=== PATIENT | female | born 1965 | race American Indian/Alaskan Native ===

== ENCOUNTER 2017-01-05 00:03 | Emergency (ER) | payer MEDICAID ==
[2017-01-05 00:09] VITALS: BP 154/84
[2017-01-05] MEDS ORDERED: Acetaminophen/HYDROcodone 325-10 MG Tab PO ONE (00:19)
--- NOTE | 2017-01-05 00:23 | EDM.PDOC ---
{null, ED HPI GENERAL MEDICAL PROBLEM - General Chief Complaint: Lower Extremity Injury/Pain Stated Complaint: FOOT INJURY, [id number] Time Seen by Provider: 01/05/17 00:20 Source of Information: Reports: Patient History Limitations: Reports: No Limitations - History of Present Illness INITIAL COMMENTS - FREE TEXT/NARRATIVE: injured Thursday. still hurts. Left Feet Pain Score (Numeric/FACES): 8 - Related Data Allergies Allergy/AdvReac Type Severity Reaction Status Date / Time Penicillins Allergy Hives Verified 01/05/17 00:09 Home Meds: Home Meds Gabapentin [Neurontin] 300 mg PO QID 01/05/17 [History] Past Medical History - Past Health History Medical/Surgical History: Denies Medical/Surgical History HEENT History: Reports: Impaired Vision Other HEENT History: wears glasses Cardiovascular History: Reports: None Respiratory History: Reports: Asthma Gastrointestinal History: Reports: None Genitourinary History: Reports: Other (See Below) Other Genitourinary History: 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 infections 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: Musculoskeletal History: Reports: Arthritis, Back Pain, Chronic Neurological History: Reports: None Psychiatric History: Reports: Anxiety, Depression Endocrine/Metabolic History: Reports: None Hematologic History: Reports: Anemia Immunologic History: Reports: None Oncologic (Cancer) History: Reports: None Dermatologic History: Reports: None - Infectious Disease History Infectious Disease History: Reports: None - Past Surgical History Head Surgeries/Procedures: Reports: None Cardiovascular Surgical History: Reports: None GI Surgical History: Reports: Appendectomy, Cholecystectomy Social & Family History - Family History Family Medical History: Noncontributory HEENT: Reports: None Other Cardiac Family History: unknown heart problems Respiratory: Reports: Asthma GI: Reports: None : Reports: None OBGYN: Reports: None Musculoskeletal: Reports: Arthritis Neurological: Reports: None Psychiatric: Reports: None Endocrine/Metabolic: Reports: Diabetes, type II Hematologic: Reports: None Dermatologic: Reports: None Other Oncologic Family History: unknown kind on grandma - Tobacco Use Smoking Status *Q: Never Smoker Second Hand Smoke Exposure: No - Caffeine Use Caffeine Use: Reports: Tea - Alcohol Use Days Per Week of Alcohol Use: 0 - Recreational Drug Use Recreational Drug Use: No - Living Situation & Occupation Living situation: Reports: with Significant Other Occupation: Employed Review of Systems - Review of Systems Review Of Systems: ROS reveals no pertinent complaints other than HPI. Trauma Exam - Physical Exam Exam: See Below Exam Limited By: No Limitations General Appearance: Reports: Alert, WD/WN, Mild Distress, Other (pain) Head: Reports: Atraumatic Ears: Reports: Hearing Grossly Normal Throat/Mouth: Reports: Normal Voice, No Airway Compromise Neck: Reports: Non-Tender, Full Range of Motion Respiratory Exam: Reports: No Respiratory Distress Cardiovascular: Reports: Regular Rate, Rhythm GI/Abdominal: Reports: Soft, Non-Tender Extremities: Pain with Movement, Tenderness, Other (left foot swollen dorsal, mild discolouration, NV wnl, gait limited to pain) Neurologic: Reports: No Motor/Sensory Deficits, Alert, Normal Mood/Affect, Oriented x 3 Skin: Reports: Normal Color Course - Vital Signs Last Recorded V/S: Last Vital Signs Temp 36.3 C 01/05/17 00:05 Pulse 95 01/05/17 00:05 Resp 18 01/05/17 00:05 BP 154/84 H 01/05/17 00:05 Pulse Ox 96 01/05/17 00:05 - Orders/Labs/Meds Meds: Medications Discontinued Medications Generic Name Dose Route Start Last Admin Trade Name Freq PRN Reason Stop Dose Admin Hydrocodone Bitart/Acetaminophen 1 tab 01/05/17 00:19 01/05/17 00:25 [employer] 325-10 Mg PO 01/05/17 00:20 1 tab ONETIME ONE Administration - Re-Assessments/Exams Free Text/Narrative Re-Assessment/Exam: 01/05/17 00:42 x-rays discussed with Pt. Departure - Departure Time of Disposition: 00:42 Disposition: Home, Self-Care 01 Condition: good Clinical Impression: Fracture of foot - Discharge Information Instructions: Metatarsal Fracture Forms: ED Department Discharge Additional Instructions: 1) wear CAM boot and use crutches 2) see Dr Henderson tomorrow with x-ray report for possible MRI SCAN rx given: vicodin 5/325mg bid prn x 12 }
== END 2017-01-05 00:47 | disposition home or self-care (01) ==
LOC: DL.ED 00:03
DX: S92.902A Unspecified fracture of left foot, initial encounter for closed fracture (principal); F32.9 Major depressive disorder, single episode, unspecified; J45.909 Unspecified asthma, uncomplicated; M19.90 Unspecified osteoarthritis, unspecified site; F41.9 Anxiety disorder, unspecified; Z90.49 Acquired absence of other specified parts of digestive tract; Z86.2 Personal history of diseases of the blood and blood-forming organs and certain disorders involving the immune mechanism; Z88.0 Allergy status to penicillin; Z98.890 Other specified postprocedural states; W10.9XXA Fall (on) (from) unspecified stairs and steps, initial encounter; Y93.02 Activity, running
CPT/HCPCS: 73630; 99283; A9270

== ENCOUNTER 2017-02-08 10:16 | Emergency (ER) | payer MEDICAID ==
[2017-02-08 10:34] VITALS: BP 111/62
[2017-02-08] MEDS ORDERED: Ketorolac 30 MG/ML SDV IM ONE (10:40)
--- NOTE | 2017-02-08 11:08 | EDM.PDOC ---
ED HPI GENERAL MEDICAL PROBLEM - General Chief Complaint: Back Pain or Injury Stated Complaint: [id number] BACK PAIN Time Seen by Provider: 02/08/17 10:30 Source of Information: Reports: Patient History Limitations: Reports: No Limitations - History of Present Illness INITIAL COMMENTS - FREE TEXT/NARRATIVE: Patient comes emergency department today with complaints of chronic lower back pain. She states for many years she has had right lower back pain that radiates down her right leg to about her right midthigh. He typically would get epidural injections for this pain although she has not been able to over the past couple of months that she has recently moved to the region and has not established primary care. She denies any recent injuries falls to the area. She denies any flank pain. She denies any abdominal pain. She denies any dysuria hematuria or urinary frequency. She denies any change in the functionality of her lower extremities. She denies any new numbness or tingling. She did recently obtain a prescription for hydrocodone for her pain for which she has not filled yet she cannot afford it as her Medicaid has not been completely approved yet. Right Lower Back Pain Score (Numeric/FACES): 9 - Related Data Allergies Allergy/AdvReac Type Severity Reaction Status Date / Time Penicillins Allergy Hives Verified 01/05/17 00:09 Home Meds: Home Meds Gabapentin [Neurontin] 300 mg PO QID 01/05/17 [History] oxyCODONE HCl/Acetaminophen [oxyCODONE-Acetaminophen 5-325] 1 tab PO Q4H PRN [History] Past Medical History - Past Health History Medical/Surgical History: Denies Medical/Surgical History HEENT History: Reports: Impaired Vision Other HEENT History: wears glasses Cardiovascular History: Reports: None Respiratory History: Reports: Asthma Gastrointestinal History: Reports: None Genitourinary History: Reports: Other (See Below) Other Genitourinary History: 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 infections 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: Musculoskeletal History: Reports: Arthritis, Back Pain, Chronic Neurological History: Reports: None Psychiatric History: Reports: Anxiety, Depression Endocrine/Metabolic History: Reports: None Hematologic History: Reports: Anemia Immunologic History: Reports: None Oncologic (Cancer) History: Reports: None Dermatologic History: Reports: None - Infectious Disease History Infectious Disease History: Reports: None - Past Surgical History Head Surgeries/Procedures: Reports: None Cardiovascular Surgical History: Reports: None GI Surgical History: Reports: Appendectomy, Cholecystectomy Social & Family History - Family History Family Medical History: Noncontributory HEENT: Reports: None Other Cardiac Family History: unknown heart problems Respiratory: Reports: Asthma GI: Reports: None : Reports: None OBGYN: Reports: None Musculoskeletal: Reports: Arthritis Neurological: Reports: None Psychiatric: Reports: None Endocrine/Metabolic: Reports: Diabetes, type II Hematologic: Reports: None Dermatologic: Reports: None Other Oncologic Family History: unknown kind on grandma - Tobacco Use Smoking Status *Q: Never Smoker Second Hand Smoke Exposure: No - Caffeine Use Caffeine Use: Reports: None - Alcohol Use Days Per Week of Alcohol Use: 0 - Recreational Drug Use Recreational Drug Use: No - Living Situation & Occupation Living situation: Reports: with Significant Other Occupation: Employed ED ROS GENERAL - Review of Systems Review Of Systems: ROS reveals no pertinent complaints other than HPI. ED EXAM,LOWER BACK PAIN/INJURY - Physical Exam Exam: See Below Exam Limited By: No Limitations General Appearance: Alert, WD/WN, No Apparent Distress Eye Exam: Bilateral Eye: PERRL (3) Ears: Normal External Exam, Normal TMs Nose: Normal Inspection, Normal Mucosa Throat/Mouth: Normal Inspection, Normal Lips, Normal Oropharynx Head: Atraumatic, Normocephalic Neck: Normal Inspection, Supple, Non-Tender, Full Range of Motion Respiratory/Chest: No Respiratory Distress, Lungs Clear, Normal Breath Sounds, No Accessory Muscle Use Cardiovascular: Normal Peripheral Pulses, Regular Rate, Rhythm GI/Abdominal: Normal Bowel Sounds, Soft, Non-Tender (Female) Exam: Deferred Rectal (Female) Exam: Deferred Back Exam: Paraspinal Tenderness, Other (Tenderness on the very lower right region of her back in the upper buttocks. There is no bruising swelling ecchymosis. No bony deformity. No breaks in the skin.). No: CVA Tenderness (L) , CVA Tenderness (R), Muscle Spasm, Vertebral Tenderness Extremities: Normal Inspection, Normal Capillary Refill Neurological: Alert, Normal Mood/Affect, Normal Dorsiflexion, CN II-XII Intact, Normal Plantar Flexion, Normal Gait, Oriented x 3 DTR - Lower Extremities: 1+: Knee (R), Knee (L), 2+: Ankle (R), Ankle (L) Psychiatric: Normal Affect, Normal Mood Skin Exam: Warm, Dry, Intact, Normal Color Lymphatic: No Adenopathy Course - Vital Signs Last Recorded V/S: Last Vital Signs Temp 37.1 C 02/08/17 10:28 Pulse 82 02/08/17 10:28 Resp 18 02/08/17 10:28 BP 111/62 02/08/17 10:28 Pulse Ox 99 02/08/17 10:28 - Orders/Labs/Meds Orders: Active Orders 24 hr Category Date Time Status Orphenadrine [Norflex] Med 02/08/17 10:45 Active 60 mg IM Q12H Medication Orders Orphenadrine Citrate (Norflex) 60 mg IM Q12H THALIA Last Admin: 02/08/17 10:50 Dose: 60 mg Meds: Medications Generic Name Dose Route Start Last Admin Trade Name Freq PRN Reason Stop Dose Admin Orphenadrine Citrate 60 mg 02/08/17 10:45 02/08/17 10:50 Norflex IM 60 mg Q12H THALIA Administration Discontinued Medications Generic Name Dose Route Start Last Admin Trade Name Freq PRN Reason Stop Dose Admin Ketorolac Tromethamine 30 mg 02/08/17 10:40 02/08/17 10:49 Toradol IM 02/08/17 10:41 30 mg ONETIME ONE Administration - Re-Assessments/Exams Free Text/Narrative Re-Assessment/Exam: 02/08/17 11:18 I explained to the patient that it is very good that she is establishing primary care for her chronic back pain. She has a prescription for narcotic medication at this time so did not feel the need for any more aggressive management. She was offered Toradol and Norflex for which he accepted. It did help her pain and her muscle spasm. She is comfortable with the plan of discharge. She denies any systemic glucocorticoids at this time for her radiculopathy. Departure - Departure Time of Disposition: 11:04 Disposition: Home, Self-Care 01 Clinical Impression: Lumbar radiculopathy, chronic - Discharge Information Instructions: Back Pain, Adult, Wepl-ed-[id number], Sciatica, [id number] Forms: ED Department Discharge Additional Instructions: Tylenol and or Ibuprofen as needed for pain. If pain not controlled with above. Fill the prescription you already received for the hydrocodone as needed for pain. Flexeril 10mg three times a day as needed for muscle spasm pain and back pain. Heat or ice to the affected areas which ever works for you. 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 Keep the appointment with primary care on thursday this for prison management of your chronic back radicular pain. Return to the ED if new or worsening symptoms. - My Orders Last 24 Hours: My Active Orders 02/08/17 10:45 Orphenadrine [Norflex] 60 mg IM Q12H - Assessment/Plan Last 24 Hours: My Active Orders 02/08/17 10:45 Orphenadrine [Norflex] 60 mg IM Q12H Assessment:: Chronic low back pain with right sided radiculopathy. Plan: Tylenol and or Ibuprofen as needed for pain. If pain not controlled with above. Fill the prescription you already received for the hydrocodone as needed for pain. Flexeril 10mg three times a day as needed for muscle spasm pain and back pain. Heat or ice to the affected areas which ever works for you. 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 Return to the ED if new or worsening symptoms.
== END 2017-02-08 11:30 | disposition home or self-care (01) ==
LOC: DL.ED 10:16
DX: M54.16 Radiculopathy, lumbar region (principal); H54.7 Unspecified visual loss; J45.909 Unspecified asthma, uncomplicated; M19.90 Unspecified osteoarthritis, unspecified site; Z90.49 Acquired absence of other specified parts of digestive tract; Z88.0 Allergy status to penicillin; Z86.2 Personal history of diseases of the blood and blood-forming organs and certain disorders involving the immune mechanism
CPT/HCPCS: 96372; 99283; 99284; J1885; J2360

== ENCOUNTER 2017-02-21 22:58 | Emergency (ER) | payer MEDICAID ==
--- NOTE | 2017-02-22 00:45 | EDM.PDOC ---
ED HPI GENERAL MEDICAL PROBLEM - General Chief Complaint: Lower Extremity Injury/Pain Stated Complaint: L FOOT PAIN Time Seen by Provider: 02/21/17 23:15 Source of Information: Reports: Patient History Limitations: Reports: No Limitations - History of Present Illness INITIAL COMMENTS - FREE TEXT/NARRATIVE: c/o left ankle pain worsening over past 2 weeks with return to work admits out of pain medication as taking more than prescribed. More pain tonight as fell in hole last evening and twisted ankle. Recent ORIF to left ankle with tib fib fractures. Fx to fore foot 3 weeks ago.Increased pain with weight bearing, Does have cam boot but has not used. Nor utilizing crutches. Left Ankle Pain Score (Numeric/FACES): 8 - Related Data Allergies Allergy/AdvReac Type Severity Reaction Status Date / Time Penicillins Allergy Hives Verified 02/21/17 23:15 Home Meds: Home Meds Gabapentin [Neurontin] 300 mg PO QID 01/05/17 [History] oxyCODONE HCl/Acetaminophen [oxyCODONE-Acetaminophen 5-325] 1 tab PO Q4H PRN [History] Past Medical History - Past Health History Medical/Surgical History: Denies Medical/Surgical History HEENT History: Reports: Impaired Vision Other HEENT History: wears glasses Cardiovascular History: Reports: None Respiratory History: Reports: Asthma Gastrointestinal History: Reports: None Genitourinary History: Reports: Other (See Below) Other Genitourinary History: 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: Musculoskeletal History: Reports: Arthritis, Back Pain, Chronic Neurological History: Reports: None Psychiatric History: Reports: Anxiety, Depression Endocrine/Metabolic History: Reports: None Hematologic History: Reports: Anemia Immunologic History: Reports: None Oncologic (Cancer) History: Reports: None Dermatologic History: Reports: None - Infectious Disease History Infectious Disease History: Reports: None - Past Surgical History Head Surgeries/Procedures: Reports: None Cardiovascular Surgical History: Reports: None GI Surgical History: Reports: Appendectomy, Cholecystectomy Social & Family History - Family History Family Medical History: Noncontributory HEENT: Reports: None Other Cardiac Family History: unknown heart problems Respiratory: Reports: Asthma GI: Reports: None : Reports: None OBGYN: Reports: None Musculoskeletal: Reports: Arthritis Neurological: Reports: None Psychiatric: Reports: None Endocrine/Metabolic: Reports: Diabetes, type II Hematologic: Reports: None Dermatologic: Reports: None Other Oncologic Family History: unknown kind on grandma - Tobacco Use Smoking Status *Q: Never Smoker Second Hand Smoke Exposure: No - Caffeine Use Caffeine Use: Reports: Coffee, Soda, Tea - Alcohol Use Days Per Week of Alcohol Use: 0 - Recreational Drug Use Recreational Drug Use: No - Living Situation & Occupation Living situation: Reports: with Significant Other Occupation: Employed Review of Systems - Review of Systems Review Of Systems: ROS reveals no pertinent complaints other than HPI. ED EXAM, GENERAL - Physical Exam Exam: See Below Exam Limited By: No Limitations General Appearance: Alert, Mild Distress, Moderate Distress (with movment) Ears: Normal External Exam Nose: Normal Inspection Throat/Mouth: Normal Inspection Respiratory/Chest: No Respiratory Distress, Lungs Clear Cardiovascular: Normal Peripheral Pulses, Regular Rate, Rhythm Extremities: Joint Swelling (greater medial aspect, increased pain flexion and internal rotation. ). No: Normal Range of Motion Neurological: Alert, Oriented, Normal Cognition Psychiatric: Normal Affect, Normal Mood Skin Exam: Warm, Dry, Intact, Normal Color, Other (healed incsional scarring bilateral ankle) Course - Vital Signs Last Recorded V/S: Last Vital Signs Temp 96.8 F 02/22/17 00:50 Pulse 60 02/22/17 00:50 Resp 18 02/22/17 00:50 BP 127/70 02/22/17 00:50 Pulse Ox 100 02/22/17 00:50 - Orders/Labs/Meds Meds: Medications Discontinued Medications Generic Name Dose Route Start Last Admin Trade Name Esauq PRN Reason Stop Dose Admin Oxycodone/Acetaminophen Confirm 02/22/17 00:46 Percocet 325-5 Mg Administered 02/22/17 00:47 Dose 3 tab .ROUTE .STK-MED ONE Oxycodone/Acetaminophen 3 tab 02/22/17 00:46 Percocet 325-5 Mg PO 02/22/17 00:47 .STK-MED ONE - Radiology Interpretation Free Text/Narrative:: left ankle, no acute fracture, hardware intact Departure - Departure Time of Disposition: 00:42 Disposition: Home, Self-Care 01 Condition: Fair Clinical Impression: History of open reduction and internal fixation (ORIF) procedure Left ankle pain Qualifiers: Chronicity: unspecified Qualified Code(s): M25.572 - Pain in left ankle and joints of left foot - Discharge Information Instructions: Ankle Sprain, [id number] Referrals: PCP,None [Primary Care Provider] - Forms: ED Department Discharge Additional Instructions: resume use of cam boot crutches with weight bearing as tolerated off work until seen by primary care limited rx Percocet 5/325 one every 6 hours as needed for severe pain 3 home Rx #4
[2017-02-22] MEDS ORDERED: Acetaminophen/oxyCODONE 325-5 MG Tab ONE (00:46)
[2017-02-22] MEDS ORDERED: Acetaminophen/oxyCODONE 325-5 MG Tab PO ONE (00:46)
[2017-02-22 00:58] VITALS: BP 127/70
== END 2017-02-22 00:50 | disposition home or self-care (01) ==
LOC: DL.ED 22:58
DX: M25.572 Pain in left ankle and joints of left foot (principal); H54.7 Unspecified visual loss; J45.909 Unspecified asthma, uncomplicated; Z90.49 Acquired absence of other specified parts of digestive tract; Z98.890 Other specified postprocedural states; Z88.0 Allergy status to penicillin
CPT/HCPCS: 73610; 99283; A9270

== ENCOUNTER 2017-05-07 08:32 | Day surgery (SDC) | payer MEDICAID ==
[~2017-05-07 08:32] MED LIST: Clindamycin Phosphate 600 MG in Sodium Chloride 0.9% 100 ML IV ONE; Lactated Ringers 1,000 ML IV SCH; Sodium Chloride 0.9% 10 ML Syringe FLUSH PRN
[2017-05-07] MEDS ORDERED: Bupivacaine 0.5% 10 ML SDV INJECT ONE ×3 (08:33→14:21)
[2017-05-07] MEDS ORDERED: Ketorolac 30 MG/ML SDV IVPUSH ONE (08:33)
[2017-05-07] MEDS ORDERED: Dexamethasone 4 MG/ML SDV IV ONE (08:33)
[2017-05-07] MEDS ORDERED: Ondansetron 4 MG/2 ML SDV IV ONE (08:33)
[2017-05-07] MEDS ORDERED: Propofol 200 MG/20 ML SDV IV ONE (08:33)
[2017-05-07] MEDS ORDERED: Lidocaine 1% 30 ML SDV INJECT ONE ×3 (08:33→14:21)
[2017-05-07] MEDS ORDERED: Lactated Ringers 1,000 ML IV ONE (08:33)
[2017-05-07] MEDS ORDERED: Midazolam 1 MG/ML 2 ML SDV IV ONE (08:33)
[2017-05-07] MEDS ORDERED: fentaNYL 100 MCG/2 ML SDV IV ONE (08:33)
[2017-05-07] MEDS ORDERED: Clindamycin Phosphate 600 MG/4 ML SDV ONE (09:38)
[2017-05-07] MEDS ORDERED: Sodium Chloride 0.9% 100 ML ONE (09:39)
[2017-05-07] MEDS ORDERED: Midazolam 1 MG/ML 2 ML SDV ONE (10:42)
[2017-05-07] MEDS ORDERED: Ketorolac 30 MG/ML SDV ONE (10:43)
[2017-05-07] MEDS ORDERED: Ondansetron 4 MG/2 ML SDV ONE (10:43)
[2017-05-07] MEDS ORDERED: Dexamethasone 4 MG/ML SDV ONE (10:43)
[2017-05-07] MEDS ORDERED: fentaNYL 100 MCG/2 ML SDV ONE ×3 (10:43→15:18)
[2017-05-07] MEDS ORDERED: Lidocaine 1% 50 MG/5 ML Syringe ONE (10:44)
[2017-05-07] MEDS ORDERED: Propofol 200 MG/20 ML SDV ONE (10:46)
[2017-05-07] MEDS ORDERED: Lidocaine 1% 30 ML SDV ONE (10:47)
[2017-05-07] MEDS ORDERED: Bupivacaine 0.5% 10 ML SDV ONE (10:47)
[2017-05-07] MEDS ORDERED: fentaNYL 100 MCG/2 ML SDV IVPUSH ONE (15:12)
[2017-05-07] MEDS ORDERED: fentaNYL 100 MCG/2 ML SDV IVPUSH PRN (15:23)
[2017-05-07] MEDS ORDERED: Acetaminophen/oxyCODONE 325-5 MG Tab PO PRN (16:05)
--- NOTE | 2017-05-07 16:19 | PCM.OPNOTE ---
- General Post-Op/Procedure Note Date of Surgery/Procedure: 05/07/17 Operative Procedure(s): left ankle medial malleolus non union debridement with fixation and allograft, syndesmosis reduction with fixation. Pre Op Diagnosis: left ankle medial malleolus non union, syndesmosis rupture Post-Op Diagnosis: oksana Anesthesia Technique: General LMA Primary Surgeon: Mara Mendoza Anesthesia Provider: Claus Del Rosario EBL in mLs: 5 Complications: none Condition: Good Free Text/Narrative:: Pt tolerated procedure well. Santo 3.5 non cannulated screw applied to medial mal non union, also to syndesmosis fixation. Pt placed in well padded L&U splint with foot in neutral.
[2017-05-07 17:02] VITALS: BP 129/76
--- NOTE | 2017-05-07 21:16 | OR ---
DATE: 05/07/2017 PREOPERATIVE DIAGNOSES: 1. Left ankle medial malleolar nonunion. 2. Left ankle syndesmosis rupture. POSTOPERATIVE DIAGNOSES: 1. Left ankle medial malleolar nonunion. 2. Left ankle syndesmosis rupture. PROCEDURE PERFORMED: 1. Left medial malleolus hardware removal with nonunion debridement and fixation with allograft bone. 2. Left ankle syndesmosis repair. ANESTHESIA: General with preoperative local block of 10 mL with 1:1 mixture of 1% lidocaine plain and 0.5% Marcaine plain. TOURNIQUET TIME: 118 minutes with pneumatic thigh tourniquet. ESTIMATED BLOOD LOSS: Minimal. SPECIMEN: None. COMPLICATIONS: None. INDICATIONS: Gerri is a 52-year-old female, who presents for left ankle pain. She has been healing from fractures in that foot also. Admits that she really has not been wearing her Cam boot. She did have a new ankle injury in February, where she stepped in a hole and twisted it, felt a pop in the area. She had immediate pain and inability to bear weight. She tried to work the next day, but her pain was too bad. She reports that she did put herself in the boot, but has been wearing that on and off since that injury. She also has a history of surgical repair of 2 fractures in the left ankle last year. The pain now is mostly to the front and the inside of the ankle. She feels like she can feel the screw on the inside of her ankle moving around or something moving at that part of the ankle causing pain. Three views of the left ankle reveal apparent nonunion of the medial malleolus, there is increased gapping at the syndesmosis and also at the medial ankle gutter. Screws and plates appear to be intact. The left foot x-rays reveal the metatarsal fractures are healing well with the trabecular bridging occurring across the fracture sites. The patient voiced good understanding of the proposed procedure and possible complications, elects to have surgery at this time. DESCRIPTION OF THE PROCEDURE: The patient was taken to the operating room, lying in supine position. After adequate anesthesia induction as described above, the left foot and ankle were prepped and draped in the usual sterile fashion. A pneumatic thigh tourniquet was inflated to 250 mmHg. Attention was then directed to the left ankle at the medial malleolus where an approximately 5 cm linear incision was made overlying the medial malleolus. Sharp and blunt dissection were performed down to the level of the periosteum which was then reflected off the medial malleolus. The screw head was identified and the screw was completely removed. The nonunion at the medial malleolus was then identified and the fibrotic tissue within the nonunion was debrided with a #15 blade as well as a curette. It was made sure that all of that tissue was curetted from all aspects of the nonunion. A 0.062 inch K-wire was then used to drill the nonunion site to good bleeding bone. The deltoid ligament was inspected and noted to be intact at this point. The medial ankle joint was visualized and the nonunion fragment was reduced back into position so that it lined up with that ankle joint. A K-wire was used for temporary fixation to this area. A 3.5 Santo noncannulated screw was then inserted across the nonunion in a Lag technique to allow for good compression across the nonunion site. The bone was noted to be very soft again in this area, and K-wire was then used for a second fixation. A bone allograft matrix was then placed at the nonunion site. Fluoroscopy was used to verify adequate positioning of the screws and K-wire as well as the nonunion fragment. The medial ankle gutter was again inspected and it was noted to be in adequate alignment, and the screws were not entering into the joint. The fragment was noted to be stable with all forces applied. The K-wire was then cut and bent into the bone at the distal aspect. It was noted to be stable. The area was then irrigated and deep closure was completed with 3-0 Vicryl. Skin closure was completed with 4-0 nylon. Attention was then directed to the lateral ankle, where an approximately 5 cm linear incision was made overlying the lateral distal fibula. Sharp and blunt dissection were performed down to the level of the plate and 2 screws were removed from the plate, but the plate was left intact. The syndesmosis was identified and there was some scarring and fibrotic tissue noted to be lodged in the syndesmosis area. This was debrided. Two Santo 3.5 noncannulated fully- threaded screws were then placed across the syndesmosis with 4 cortices, before the screws were placed, a bone reduction clamp was used to reduce the syndesmosis and fluoroscopy was used to verify proper reduction of the syndesmosis. The screws were then placed across the syndesmosis 4 cortices. Fluoroscopy was then again used to verify proper positioning of the screws and adequate reduction of the syndesmosis which was stable with live fluoroscopy. The talar tilt and anterior drawer were then tested, and those were noted to be very stable at this point. The ankle was noted to be stable and fluid range of motion. When the syndesmosis screws were placed, the ankle was in dorsiflexion. The areas were then irrigated with copious amounts of sterile saline. Deep closure was completed with 3-0 Vicryl and skin closure was completed with 4-0 nylon. The patient tolerated the procedure and anesthesia well. She was placed into a well-padded L and U splint with the foot in neutral position. She was transferred to Recovery with vital signs stable and vascular status intact as noted by immediate hyperemia to all digits upon deflation of the thigh tourniquet. The patient was then discharged home when she met hospital discharge requirements. [facility] /[id number]
--- NOTE | 2017-05-13 11:44 | PCM.SN ---
- Free Text/Narrative Note: Follow up/addendum to anesthesia record from 05/07/2017. Was documented that patient received 300 mcg of fentanyl IV during procedure. Pt was only given 50 mcg of fentanly but was documented as 100 mcg of fentanly at 1120. Total fentanyl given during anesthesia was 250 mcg, not 300 mcg. 50 mcg of fentanyl was wasted through [employer] system with RN.
== END 2017-05-07 16:50 | disposition home or self-care (01) ==
LOC: DL.SDS 08:32
PROVIDERS: ATTEND Podiatrist
DX: Z47.2 Encounter for removal of internal fixation device (principal); S93.492A Sprain of other ligament of left ankle, initial encounter; W22.8XXA Striking against or struck by other objects, initial encounter
CPT/HCPCS: 20680; 27829; A9270; C1713; J1100; J1885; J2250; J2405; J2704; J3010; J7050; J7120; S0077

== ENCOUNTER 2017-11-12 07:02 | Day surgery (SDC) | payer MEDICAID ==
[2017-11-12] MEDS ORDERED: Lidocaine 1% 30 ML SDV INJECT ONE ×5 (07:03→09:52)
[2017-11-12] MEDS ORDERED: Dexamethasone 4 MG/ML SDV IV ONE (07:03)
[2017-11-12] MEDS ORDERED: Ondansetron 4 MG/2 ML SDV IV ONE (07:03)
[2017-11-12] MEDS ORDERED: Bupivacaine 0.5% 30 ML SDV INJECT ONE ×5 (07:03→09:52)
[2017-11-12] MEDS ORDERED: fentaNYL 100 MCG/2 ML SDV IV ONE (07:03)
[2017-11-12] MEDS ORDERED: Ketorolac 30 MG/ML SDV IVPUSH ONE (07:03)
[2017-11-12] MEDS ORDERED: Midazolam 1 MG/ML 2 ML SDV IV ONE (07:03)
[2017-11-12] MEDS ORDERED: Propofol 200 MG/20 ML SDV IV ONE (07:03)
[2017-11-12] MEDS ORDERED: Bupivacaine 0.5% 30 ML SDV ONE (07:49)
[2017-11-12] MEDS ORDERED: Lidocaine 1% 30 ML SDV ONE (07:50)
[2017-11-12] MEDS ORDERED: Clindamycin Phosphate 600 MG/4 ML SDV ONE (08:29)
[2017-11-12] MEDS ORDERED: Sodium Chloride 0.9% 100 ML ONE (08:30)
[2017-11-12] MEDS ORDERED: Acetaminophen/oxyCODONE 325-5 MG Tab PO PRN (10:22)
--- NOTE | 2017-11-12 10:25 | PCM.OPNOTE ---
- General Post-Op/Procedure Note Date of Surgery/Procedure: 11/12/17 Operative Procedure(s): left ankle hardware removal Pre Op Diagnosis: left ankle retained hardware Post-Op Diagnosis: oksana Anesthesia Technique: Local, MAC Primary Surgeon: Mara Mendoza Anesthesia Provider: Claus Del Rosario EBSergio in mLs: 10 Complications: none Condition: Good Free Text/Narrative:: Pt tolerated procedure well and was transported to recovery with vascular status intact to left lower extremity. Well padded compression dressing with cam boot applied. All hardware removed from left ankle.
[2017-11-12 13:14] VITALS: BP 106/52
--- NOTE | 2017-11-13 11:58 | OR ---
DATE: 11/12/2017 PREOPERATIVE DIAGNOSIS: Left ankle retained hardware. POSTOPERATIVE DIAGNOSIS: Left ankle retained hardware. PROCEDURE PERFORMED: Left ankle hardware removal. TOURNIQUET TIME: Pneumatic ankle tourniquet, 51 minutes. ESTIMATED BLOOD LOSS: Minimal. SPECIMEN: None. COMPLICATIONS: None. INDICATIONS: Vanessa is a 52-year-old female who is status post left ankle surgery, date of surgery 05/07/2017. She is still having some ankle pain, thinks that she can feel the hardware in there; and also, she does have syndesmotic screws that need to come out at this point. She has transitioned back into regular shoe, sometimes wears an ASO brace which helps some. Most of her ankle pain is a burning numbing-type pain that radiates all the way from her back. She has been having lots of problems with her back issues lately and has recently undergone injections for those. She has pain with walking or standing and also a burning pain at night when she is trying to sleep. She still has some pain at the forefoot fractures that she had a few months back; these appear to be healing well. X-rays of the left ankle and foot reveal screws and plates intact to the left ankle with healing at the fracture sites with trabecular bridging, appear well healed; some slight shortening of the fibula from the fibular malunion and some slight talar tilt; some spurring to the medial ankle; and lucency around the syndesmotic screws at the fibula. The left foot reveals healed metatarsal fractures 2, 3, and 4 with minimal displacement. The patient voiced good understanding of the proposed possible procedure and complications, elects to have surgery at this time. DESCRIPTION OF PROCEDURE: The patient was taken to the operating room lying in supine position. After adequate anesthesia induction as described above, the left foot and ankle were prepped and draped in the usual sterile fashion. A high ankle tourniquet was then inflated to 225 mmHg. Attention was then directed to the previous incision areas at the medial and lateral ankle, where on the medial ankle, a small 2 cm linear incision was made over the medial malleolus hardware. A sharp and blunt dissections were carried down to the level of the hardware careful to avoid all neurovascular bundles. The screw, K- wire, and medial malleolus were completely removed. The area was then irrigated with copious amounts of sterile saline. Deep closure was completed with 3-0 Vicryl, and skin was closed with 4-0 nylon. Attention was then directed to the lateral ankle at the prior incision site. A linear incision was made overlying the hardware, approximately 6 cm in length. Sharp and blunt dissection was carried down to the level of the hardware with care to retract all neurovascular structures. The hardware was visualized, and all screws and the plate were completely removed from the ankle. The area was then irrigated with copious amounts of sterile saline. Deep closure was completed with 3-0 Vicryl, and skin closure was completed with 4-0 nylon. The area was dressed with Xeroform to the incision site, fluffs, Webril, and a compression Carlin wrap. She was placed in a Cam boot. The patient tolerated anesthesia and the procedure well and was transferred to the recovery room with vital signs stable and vascular status intact as noted by immediate hyperemia upon deflation of the ankle tourniquet. Total tourniquet time was 51 minutes. She was then discharged home when she met hospital discharge requirements. [facility] /[id number]
--- NOTE | 2017-11-15 13:13 | EKG ---
11/12/2017 - KAMAR REYNOSO - This 12-lead EKG shows normal sinus rhythm with no significant ST elevation or ST depression noted on this 12-lead EKG. Heart rate of 68. [facility] /[id number]
== END 2017-11-12 11:41 | disposition home or self-care (01) ==
LOC: DL.SDS 07:02
PROVIDERS: ATTEND Podiatrist
DX: Z47.2 Encounter for removal of internal fixation device (principal); J45.909 Unspecified asthma, uncomplicated; G89.29 Other chronic pain; M54.9 Dorsalgia, unspecified; F32.9 Major depressive disorder, single episode, unspecified; K21.9 Gastro-esophageal reflux disease without esophagitis; Z88.0 Allergy status to penicillin; Z79.899 Other long term (current) drug therapy
CPT/HCPCS: 20680; 93005; J1100; J1885; J2250; J2405; J2704; J3010; J7050; J7120; S0077

== ENCOUNTER 2018-11-10 18:47 | Emergency (ER) | payer OTHER ==
[2018-11-10 19:05] VITALS: BP 149/98
--- NOTE | 2018-11-10 19:14 | EDM.PDOC ---
ED HPI GENERAL MEDICAL PROBLEM - General Chief Complaint: Upper Extremity Injury/Pain Stated Complaint: HURT LEFT ARM Time Seen by Provider: 11/10/18 19:00 Source of Information: Reports: Patient, RN, RN Notes Reviewed History Limitations: Reports: No Limitations - History of Present Illness INITIAL COMMENTS - FREE TEXT/NARRATIVE: Pt to ER with c/o left forearm pain. Patient states at 2pm today she was cleaning and standing on a stool hanging something up. She states she fell off the stool and injured the right arm. Rates pain 9/10. She states she has taken 2 extra strength tylenol prior to coming. States she can wiggle the fingers. Onset: Today, Sudden Duration: Constant Location: Reports: Upper Extremity, Left Left Lower Arm Pain Score (Numeric/FACES): 9 - Related Data Allergies Allergy/AdvReac Type Severity Reaction Status Date / Time Penicillins Allergy Hives Verified 11/12/17 07:15 Home Meds: Home Meds Albuterol Sulfate [Proair Hfa] 2 puff INH Q6H PRN 05/06/17 [History] Cyclobenzaprine [Flexeril] 10 mg PO TID PRN 05/06/17 [History] Diclofenac Sodium [Voltaren] 75 mg PO DAILY 05/06/17 [History] FLUoxetine HCl [Fluoxetine HCl] 60 mg PO BID 11/10/18 [History] Gabapentin [Neurontin] 600 mg PO TID 11/10/18 [History] Past Medical History - Past Health History Medical/Surgical History: Denies Medical/Surgical History HEENT History: Reports: Impaired Vision Other HEENT History: wears glasses Cardiovascular History: Reports: None, Heart Murmur Respiratory History: Reports: Asthma Gastrointestinal History: Reports: None Genitourinary History: Reports: Other (See Below) Other Genitourinary History: 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 infections [employer] History: Reports: Musculoskeletal History: Reports: Arthritis, Back Pain, Chronic, Fracture Other Musculoskeletal History: FX L ANKLE Neurological History: Reports: None Psychiatric History: Reports: Anxiety, Depression Endocrine/Metabolic History: Reports: None, Other (See Below) Other Endocrine/Metabolic History: LIVER BIOPSY Hematologic History: Reports: Anemia Immunologic History: Reports: None Oncologic (Cancer) History: Reports: None Dermatologic History: Reports: None - Infectious Disease History Infectious Disease History: Reports: None, Hepatitis non A,B,C - Past Surgical History Neurological Surgical History: Social & Family History - Family History Family Medical History: Noncontributory HEENT: Reports: None Other Cardiac Family History: unknown heart problems Respiratory: Reports: Asthma GI: Reports: None : Reports: None OBGYN: Reports: None Musculoskeletal: Reports: Arthritis Neurological: Reports: None Psychiatric: Reports: None Endocrine/Metabolic: Reports: Diabetes, type II Hematologic: Reports: None Dermatologic: Reports: None Oncologic: Reports: Other (See Below) Other Oncologic Family History: unknown kind on grandma thinks it was stomach cancer - Caffeine Use Caffeine Use: Reports: Coffee, Soda, Tea - Living Situation & Occupation Living situation: Reports: with Significant Other Occupation: Employed Review of Systems - Review of Systems Review Of Systems: ROS reveals no pertinent complaints other than HPI. ED EXAM, GENERAL - Physical Exam Exam: See Below Exam Limited By: No Limitations General Appearance: Alert, WD/WN, Mild Distress Eye Exam: Bilateral Eye: EOMI, Normal Inspection Ears: Normal External Exam, Hearing Grossly Normal Nose: Normal Inspection Throat/Mouth: Normal Inspection, Normal Voice, No Airway Compromise Head: Atraumatic, Normocephalic Neck: Normal Inspection, Supple, Non-Tender, Full Range of Motion Respiratory/Chest: No Respiratory Distress, Lungs Clear, Normal Breath Sounds, No Accessory Muscle Use, Chest Non-Tender Cardiovascular: Normal Peripheral Pulses, Regular Rate, Rhythm, No Edema, No Gallop, No JVD, No Murmur, No Rub Peripheral Pulses: 2+: Radial (L), Radial (R) GI/Abdominal: Normal Bowel Sounds, Soft, Non-Tender (Female) Exam: Deferred Rectal (Female) Exam: Deferred Back Exam: Normal Inspection, Full Range of Motion, NT Extremities: Arm Pain (left), Limited Range of Motion, Other (Ecchymosis and swelling on large portion of the dorsal aspect of the left forearm) Neurological: Alert, Oriented, CN II-XII Intact, Normal Cognition, Normal Gait, Normal Reflexes, No Motor/Sensory Deficits Psychiatric: Normal Affect, Normal Mood Skin Exam: Warm, Dry, Intact, Ecchymosis (left forearm) Lymphatic: No Adenopathy Course - Vital Signs Last Recorded V/S: Last Vital Signs Temp 98.2 F 11/10/18 19:00 Pulse 97 11/10/18 19:00 Resp 20 03/27/19 19:00 BP 149/98 H 11/10/18 19:00 Pulse Ox 100 11/10/18 19:00 - Orders/Labs/Meds Orders: Active Orders 24 hr Category Date Time Status Forearm 2V Lt [CR] Urgent Exams 11/10/18 18:59 Taken - Radiology Interpretation Free Text/Narrative:: Left arm xray: FINDINGS: Bones/joints: Normal. Soft tissues: Normal. IMPRESSION: No acute findings. Thank you for allowing us to participate in the care of your patient. Dictated and Authenticated by: Karthik Ulloa MD 11/10/2018 7:14 PM Central Time ([place] & [place]) See rad report Departure - Departure Time of Disposition: 19:16 Disposition: Home, Self-Care 01 Condition: Good Clinical Impression: Contusion - Discharge Information *PRESCRIPTION DRUG MONITORING PROGRAM REVIEWED*: No *COPY OF PRESCRIPTION DRUG MONITORING REPORT IN PATIENT ERICKSON: No Instructions: Contusion, [id number] Forms: ED Department Discharge Additional Instructions: Continue to use tylenol and/or ibuprofen as directed for pain Use ice as tolerated Follow up with your primary care facility if no improvement - My Orders Last 24 Hours: My Active Orders 11/10/18 18:59 Forearm 2V Lt [CR] Urgent - Assessment/Plan Last 24 Hours: My Active Orders 11/10/18 18:59 Forearm 2V Lt [CR] Urgent
== END 2018-11-10 19:22 | disposition home or self-care (01) ==
LOC: DL.ED 18:47
DX: S50.12XA Contusion of left forearm, initial encounter (principal); J45.909 Unspecified asthma, uncomplicated; Z88.0 Allergy status to penicillin; Z79.899 Other long term (current) drug therapy; W08.XXXA Fall from other furniture, initial encounter
CPT/HCPCS: 73090-LT; 99283-25

== ENCOUNTER 2018-12-08 20:03 | Emergency (ER) | payer OTHER ==
[2018-12-08] MEDS: Morphine 2 MG/ML Syringe IVPUSH ONE (20:33)
[2018-12-08] MEDS: LORazepam 2 MG/ML Syringe IVPUSH ONE (20:41)
[2018-12-08 20:42] LABS: ANION GAP 17.5; CHLORIDE,CL 100 mmol/L (101-111); SODIUM,NA 136 mmol/L (135-145)
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
[2018-12-08] MEDS: Iopamidol 612 MG/ML 100 ML Bottle IVPUSH ONE (20:56)
[2018-12-08 21:40] VITALS: BP 109/68
== END 2018-12-08 22:17 | disposition home or self-care (01) ==
LOC: DL.ED 20:03
DX: M62.838 Other muscle spasm (principal); F41.9 Anxiety disorder, unspecified; Z88.0 Allergy status to penicillin; Z79.899 Other long term (current) drug therapy
CPT/HCPCS: 36415; 71260; 74177; 80053; 80305; 81001; 82150; 83690; 84484; 85025; 85379; 93005; 96372; 96374; 96375; 99284; J2060; J2270; J2360; Q9967

== ENCOUNTER 2018-12-30 16:31 | Emergency (ER) | payer OTHER ==
[2018-12-30 16:41] VITALS: BP 119/69; PULSE 90
--- NOTE | 2018-12-30 16:59 | EDM.PDOC ---
ED HPI GENERAL MEDICAL PROBLEM - General Chief Complaint: Lower Extremity Injury/Pain Stated Complaint: weight fell on foot Time Seen by Provider: 12/30/18 16:59 Source of Information: Reports: Patient, RN, RN Notes Reviewed History Limitations: Reports: No Limitations - History of Present Illness INITIAL COMMENTS - FREE TEXT/NARRATIVE: Pt to ER with c/o pain to the top of the left foot. She states they were moving things around and she dropped a weight on her left foot. Happened about 1.5 hours prior to arrival. Patient states she is able to wiggle the toes somewhat. She states she has a past hx of arthritis and surgeries on the left ankle. Onset: Today, Sudden Left Foot Pain Score (Numeric/FACES): 10 - Related Data Allergies Allergy/AdvReac Type Severity Reaction Status Date / Time Penicillins Allergy Hives Verified 12/30/18 16:40 Home Meds: Home Meds Albuterol Sulfate [Proair Hfa] 2 puff INH Q6H PRN 05/06/17 [History] Gabapentin [Neurontin] 600 mg PO TID 11/10/18 [History] Meloxicam 15 mg PO DAILY 12/08/18 [History] Past Medical History - Past Health History Medical/Surgical History: Denies Medical/Surgical History HEENT History: Reports: Impaired Vision Other HEENT History: wears glasses Cardiovascular History: Reports: Heart Murmur Respiratory History: Reports: Asthma Gastrointestinal History: Reports: None Genitourinary History: Reports: Pyelonephritis, Renal Calculus Other Genitourinary History: 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 infections 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: Musculoskeletal History: Reports: Arthritis, Back Pain, Chronic, Fracture Other Musculoskeletal History: FX L ANKLE Neurological History: Reports: None Psychiatric History: Reports: Anxiety, Depression Endocrine/Metabolic History: Reports: None, Other (See Below) Other Endocrine/Metabolic History: LIVER BIOPSY Hematologic History: Reports: Anemia Immunologic History: Reports: None Oncologic (Cancer) History: Reports: None Dermatologic History: Reports: None - Infectious Disease History Infectious Disease History: Reports: None, Hepatitis non A,B,C - Past Surgical History Head Surgeries/Procedures: Reports: None Social & Family History - Family History Family Medical History: Noncontributory HEENT: Reports: None Other Cardiac Family History: unknown heart problems Respiratory: Reports: Asthma GI: Reports: None : Reports: None OBGYN: Reports: None Musculoskeletal: Reports: Arthritis Neurological: Reports: None Psychiatric: Reports: None Endocrine/Metabolic: Reports: Diabetes, type II Hematologic: Reports: None Dermatologic: Reports: None Oncologic: Reports: Other (See Below) Other Oncologic Family History: unknown kind on grandma thinks it was stomach cancer - Tobacco Use Smoking Status *Q: Never Smoker Second Hand Smoke Exposure: No - Caffeine Use Caffeine Use: Reports: Coffee, Soda, Tea - Recreational Drug Use Recreational Drug Use: No - Living Situation & Occupation Living situation: Reports: with Significant Other Occupation: Employed Review of Systems - Review of Systems Review Of Systems: ROS reveals no pertinent complaints other than HPI. ED EXAM, GENERAL - Physical Exam Exam: See Below Exam Limited By: No Limitations General Appearance: Alert, WD/WN, Mild Distress Eye Exam: Bilateral Eye: EOMI, Normal Inspection Ears: Normal External Exam, Hearing Grossly Normal Nose: Normal Inspection Throat/Mouth: Normal Inspection, Normal Voice, No Airway Compromise Head: Atraumatic, Normocephalic Neck: Normal Inspection, Supple, Non-Tender, Full Range of Motion Respiratory/Chest: No Respiratory Distress, Lungs Clear, Normal Breath Sounds, No Accessory Muscle Use, Chest Non-Tender Cardiovascular: Normal Peripheral Pulses, Regular Rate, Rhythm, No Edema, No Gallop, No JVD, No Murmur, No Rub Peripheral Pulses: 2+: Radial (L), Radial (R), Dorsalis Pedis (L) GI/Abdominal: Normal Bowel Sounds, Soft, Non-Tender (Female) Exam: Deferred Rectal (Female) Exam: Deferred Back Exam: Normal Inspection, Full Range of Motion, NT Extremities: Normal Inspection, Normal Range of Motion, No Pedal Edema, Normal Capillary Refill, Leg Pain (left foot), Limited Range of Motion (left foot) Neurological: Alert, Oriented, CN II-XII Intact, Normal Cognition, Normal Gait, Normal Reflexes, No Motor/Sensory Deficits Psychiatric: Normal Affect, Normal Mood Skin Exam: Ecchymosis (top of left foot) Lymphatic: No Adenopathy Course - Vital Signs Last Recorded V/S: Last Vital Signs Temp 98.2 F 12/30/18 16:40 Pulse 90 12/30/18 16:40 Resp 20 12/30/18 16:40 BP 119/69 12/30/18 16:40 Pulse Ox 100 12/30/18 16:40 - Radiology Interpretation Free Text/Narrative:: Left foot xray: Subtle deformity head of the 2nd and 3rd metatarsals unchanged since October 1999 films Mild soft tissue swelling No acute fracture or dislocation left foot See rad report Departure - Departure Time of Disposition: 17:11 Disposition: Home, Self-Care 01 Condition: Fair Clinical Impression: Contusion of left foot Qualifiers: Encounter type: initial encounter Qualified Code(s): S90.32XA - Contusion of left foot, initial encounter - Discharge Information *PRESCRIPTION DRUG MONITORING PROGRAM REVIEWED*: No *COPY OF PRESCRIPTION DRUG MONITORING REPORT IN PATIENT ERICKSON: No Instructions: Foot Contusion, [id number] Forms: ED Department Discharge Additional Instructions: May use Tylenol and/or Ibuprofen as directed for pain Elevate and ice the foot as tolerated Follow up with your primary care facility if no improvement
--- NOTE | 2018-12-30 17:06 | CR ---
Clinical history: 53-year-old female dropped weight on left foot. Interpretation: Atavistic first cuneiform, mild hallux valgus and chronic mild arthritic change involving the first metatarsal all interphalangeal and DIP joints of the left forefoot. Generalized demineralization. Subtle deformity head of the second and third metatarsals unchanged since October 1999 813 films. Mild soft tissue swelling. *No acute fracture or dislocation left foot (tiny heel spur posteriorly at the insertion Achilles tendon on the os calcis). Arthritic degenerative changes left ankle but hardware has been removed in the interval since 21 October 2017. No foreign bodies..
== END 2018-12-30 18:00 | disposition home or self-care (01) ==
LOC: DL.ED 16:31
DX: S90.32XA Contusion of left foot, initial encounter (principal); J45.909 Unspecified asthma, uncomplicated; F41.9 Anxiety disorder, unspecified; F32.9 Major depressive disorder, single episode, unspecified; W20.8XXA Other cause of strike by thrown, projected or falling object, initial encounter; Z88.0 Allergy status to penicillin; Z79.899 Other long term (current) drug therapy
CPT/HCPCS: 73620-LT; 99283-25

== ENCOUNTER 2020-01-16 18:14 | Emergency (ER) | payer OTHER ==
[2020-01-16 18:34] VITALS: BP 113/83; PULSE 83
[2020-01-16] MEDS ORDERED: HYDROmorphone 0.5 MG/0.5 ML Syringe IM ONE (19:04)
[2020-01-16] MEDS ORDERED: Dexamethasone 4 MG/ML SDV IM ONE (19:04)
--- NOTE | 2020-01-16 19:10 | EDM.PDOC ---
ED HPI GENERAL MEDICAL PROBLEM - General Chief Complaint: Back Pain or Injury Stated Complaint: BACK PAIN Time Seen by Provider: 01/16/20 18:57 Source of Information: Reports: Patient, RN, RN Notes Reviewed History Limitations: Reports: No Limitations - History of Present Illness INITIAL COMMENTS - FREE TEXT/NARRATIVE: Patient presents to ER with complaint of low back pain. Patient states she had surgery to the low back 2 months ago. States on Thursday she was assisting with lifting a riding lawnmower into a the back end of a pickup and reinjured her back. Admits to numbness and tingling in the buttocks and down the back of the legs. Denies any saddle anesthesia, incontinence of bowel or bladder. Patient states she is out of her prescription of pain medications, says there is a discrepancy between the pharmacy and her clinic. Patient states she did not call her surgeon today regarding the pain and reinjury. Patient states she will call her surgeon's office tomorrow. Onset: Sudden Back Pain Score (Numeric/FACES): 8 - Related Data Allergies Allergy/AdvReac Type Severity Reaction Status Date / Time Penicillins Allergy Hives Verified 01/16/20 18:34 Home Meds: Home Meds Albuterol Sulfate [Proair Hfa] 2 puff INH Q6H PRN 05/06/17 [History] Gabapentin [Neurontin] 600 mg PO TID 11/10/18 [History] Meloxicam 15 mg PO DAILY 12/08/18 [History] Past Medical History - Past Health History Medical/Surgical History: Denies Medical/Surgical History HEENT History: Reports: Impaired Vision Other HEENT History: wears glasses Cardiovascular History: Reports: Heart Murmur Respiratory History: Reports: Asthma Gastrointestinal History: Reports: None Genitourinary History: Reports: Pyelonephritis, Renal Calculus Other Genitourinary History: 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 infections 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: Musculoskeletal History: Reports: Arthritis, Back Pain, Chronic, Fracture, Other (See Below) Other Musculoskeletal History: FX L ANKLE, back surgery 2020 Neurological History: Reports: None Psychiatric History: Reports: Anxiety, Depression Endocrine/Metabolic History: Reports: None, Other (See Below) Other Endocrine/Metabolic History: LIVER BIOPSY Hematologic History: Reports: Anemia Immunologic History: Reports: None Oncologic (Cancer) History: Reports: None Dermatologic History: Reports: None - Infectious Disease History Infectious Disease History: Reports: None, Hepatitis non A,B,C - Past Surgical History Head Surgeries/Procedures: Reports: None Social & Family History - Family History Family Medical History: Noncontributory HEENT: Reports: None Other Cardiac Family History: unknown heart problems Respiratory: Reports: Asthma GI: Reports: None : Reports: None OBGYN: Reports: None Musculoskeletal: Reports: Arthritis Neurological: Reports: None Psychiatric: Reports: None Endocrine/Metabolic: Reports: Diabetes, type II Hematologic: Reports: None Dermatologic: Reports: None Oncologic: Reports: Other (See Below) Other Oncologic Family History: unknown kind on grandma thinks it was stomach cancer - Tobacco Use Smoking Status *Q: Never Smoker - Caffeine Use Caffeine Use: Reports: None - Recreational Drug Use Recreational Drug Use: No - Living Situation & Occupation Living situation: Reports: with Significant Other Occupation: Employed ED ROS GENERAL - Review of Systems Review Of Systems: Comprehensive ROS is negative, except as noted in HPI. ED EXAM,LOWER BACK PAIN/INJURY - Physical Exam Exam: See Below Exam Limited By: No Limitations General Appearance: Alert, WD/WN, Mild Distress Eye Exam: Bilateral Eye: EOMI, Normal Inspection Ears: Normal External Exam, Hearing Grossly Normal Nose: Normal Inspection Throat/Mouth: Normal Inspection, Normal Voice, No Airway Compromise Head: Atraumatic, Normocephalic Neck: Normal Inspection, Supple, Non-Tender, Full Range of Motion Respiratory/Chest: No Respiratory Distress, Lungs Clear, Normal Breath Sounds, No Accessory Muscle Use, Chest Non-Tender Cardiovascular: Normal Peripheral Pulses, Regular Rate, Rhythm, No Edema, No Gallop, No JVD, No Murmur, No Rub GI/Abdominal: Normal Bowel Sounds, Soft, Non-Tender, No Organomegaly, No Distention, No Abnormal Bruit, No Mass (Female) Exam: Deferred Rectal (Female) Exam: Deferred Back Exam: Normal Inspection, Decreased Range of Motion, Paraspinal Tenderness, Vertebral Tenderness Extremities: Normal Inspection, Normal Range of Motion, Non-Tender, No Pedal Edema, Normal Capillary Refill Neurological: Alert, Normal Mood/Affect, Normal Dorsiflexion, CN II-XII Intact, Normal Plantar Flexion, Normal Gait, Normal Reflexes, No Motor/Sensory Deficits , Oriented x 3 Psychiatric: Normal Affect, Normal Mood, Tearful Skin Exam: Warm, Dry, Intact, Normal Color, No Rash Lymphatic: No Adenopathy Course - Vital Signs Last Recorded V/S: Last Vital Signs Temp 98 F 01/16/20 18:30 Pulse 83 01/16/20 18:30 Resp 16 01/16/20 18:30 BP 113/83 01/16/20 18:30 Pulse Ox 99 01/16/20 18:30 - Orders/Labs/Meds Meds: Medications Discontinued Medications Generic Name Dose Route Start Last Admin Trade Name Vita PRN Reason Stop Dose Admin Dexamethasone 10 mg 01/16/20 19:04 01/16/20 19:17 Dexamethasone IM 01/16/20 19:05 10 mg ONETIME ONE Administration Hydromorphone HCl 1 mg 01/16/20 19:04 01/16/20 19:17 Dilaudid IM 01/16/20 19:05 1 mg ONETIME ONE Administration Departure - Departure Time of Disposition: 19:24 Disposition: Home, Self-Care 01 Condition: Fair Clinical Impression: Low back pain - Discharge Information *PRESCRIPTION DRUG MONITORING PROGRAM REVIEWED*: No *COPY OF PRESCRIPTION DRUG MONITORING REPORT IN PATIENT ERICKSON: No Instructions: Back Injury Prevention, [id number], Muscle Strain, [id number] , Chronic Back Pain, [id number] Referrals: PCP,Unobtain [Ordering Only Provider] - Forms: ED Department Discharge Additional Instructions: May alternate heat and ice to the back area May use Tylenol as directed for pain Follow up with your surgeon and your pharmacy regarding your pain medications No lifting Rest Sepsis Event Note - Evaluation Sepsis Screening Result: No Definite Risk - Focused Exam Vital Signs: Vital Signs Temp Pulse Resp BP Pulse Ox 01/16/20 18:30 98 F 83 16 113/83 99 Date Exam was Performed: 01/16/20 Time Exam was Performed: 20:56
== END 2020-01-16 19:37 | disposition home or self-care (01) ==
LOC: DL.ED 18:14
DX: M54.5 Low back pain (principal); J45.909 Unspecified asthma, uncomplicated; Z88.0 Allergy status to penicillin; Z79.899 Other long term (current) drug therapy
CPT/HCPCS: 96372; 99283; J1100; J1170; 99282

== ENCOUNTER 2020-04-09 11:27 | Emergency (ER) | payer SELFPAY ==
--- NOTE | 2020-04-09 11:39 | EDM.PDOC ---
ED HPI GENERAL MEDICAL PROBLEM - General Stated Complaint: AMBULANCE Time Seen by Provider: 04/09/20 12:05 Source of Information: Reports: Patient History Limitations: Reports: No Limitations - History of Present Illness INITIAL COMMENTS - FREE TEXT/NARRATIVE: This 55 yo female patient was sent to the ED from the [facility] due to chest pain with pain radiating to her left shoulder. The patient reported that her pain started last night and has been intermittent. When the patient is present, the patient reports her pain is a 9/10 and describes her pain as a sharp shooting pain. The patient was given aspirin and Nitro while at the [facility]. Nitro was repeated by EMS with no changes in the augustine. The patient has a history of GERD, Asthma and Covid + on March 06. The patient reports she has been lying in bed for the past 2 days due to her lower back pain, but started to have left sided chest pain that radiates to her left arm last night. The patient reports she had left arm numbness this morning along with left sided chest pain. The patient reports increased pain with left arm movement or palpation of the left pectoral muscle. Th patient reports she currently does not have movement problems or left arm numbness. Onset: Gradual Duration: Day(s): (2) Location: Reports: Chest (left chest wall), Upper Extremity, Left Quality: Reports: Ache, Sharp, Stabbing Severity: Moderate Improves with: Reports: Rest Worsens with: Reports: Movement Context: Reports: Other Associated Symptoms: Reports: Chest Pain left chest Pain Score (Numeric/FACES): 8 - Related Data Allergies Allergy/AdvReac Type Severity Reaction Status Date / Time Penicillins Allergy Hives Verified 04/09/20 12:06 Home Meds: Home Meds Albuterol Sulfate [Proair Hfa] 2 puff INH Q6H PRN 05/06/17 [History] Gabapentin [Neurontin] 600 mg PO TID 11/10/18 [History] Meloxicam 15 mg PO DAILY 12/08/18 [History] Alendronate Sodium 70 mg PO .WEEKLY 04/09/20 [History] Montelukast [Singulair] 10 mg PO DAILY 04/09/20 [History] oxyCODONE HCl/Acetaminophen [Endocet 10-325 mg Tablet] 1 each PO Q8H PRN 04/09/20 [History] Past Medical History - Past Health History Medical/Surgical History: Denies Medical/Surgical History HEENT History: Reports: Impaired Vision Other HEENT History: wears glasses Cardiovascular History: Reports: Heart Murmur Respiratory History: Reports: Asthma Gastrointestinal History: Reports: None Genitourinary History: Reports: Pyelonephritis, Renal Calculus Other Genitourinary History: 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 infections 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: Musculoskeletal History: Reports: Arthritis, Back Pain, Chronic, Fracture, Other (See Below) Other Musculoskeletal History: FX L ANKLE, back surgery 2020 Neurological History: Reports: None Psychiatric History: Reports: Anxiety, Depression Endocrine/Metabolic History: Reports: None, Other (See Below) Other Endocrine/Metabolic History: LIVER BIOPSY Hematologic History: Reports: Anemia Immunologic History: Reports: None Oncologic (Cancer) History: Reports: None Dermatologic History: Reports: None - Infectious Disease History Infectious Disease History: Reports: None, Hepatitis non A,B,C - Past Surgical History Head Surgeries/Procedures: Reports: None Social & Family History - Family History Family Medical History: Noncontributory HEENT: Reports: None Other Cardiac Family History: unknown heart problems Respiratory: Reports: Asthma GI: Reports: None : Reports: None OBGYN: Reports: None Musculoskeletal: Reports: Arthritis Neurological: Reports: None Psychiatric: Reports: None Endocrine/Metabolic: Reports: Diabetes, type II Hematologic: Reports: None Dermatologic: Reports: None Oncologic: Reports: Other (See Below) Other Oncologic Family History: unknown kind on grandma thinks it was stomach cancer - Caffeine Use Caffeine Use: Reports: None - Living Situation & Occupation Living situation: Reports: with Significant Other Occupation: Employed ED ROS GENERAL - Review of Systems Review Of Systems: Comprehensive ROS is negative, except as noted in HPI. ED EXAM, GENERAL - Physical Exam Exam: See Below Exam Limited By: No Limitations General Appearance: Alert, WD/WN, Moderate Distress Eye Exam: Bilateral Eye: EOMI, Normal Inspection, PERRL Ears: Normal External Exam, Normal Canal, Hearing Grossly Normal, Normal TMs Nose: Normal Inspection, Normal Mucosa, No Blood Throat/Mouth: Normal Inspection, Normal Lips, Normal Teeth, Normal Gums, Normal Oropharynx, Normal Voice, No Airway Compromise Head: Atraumatic, Normocephalic Neck: Normal Inspection, Supple, Non-Tender, Full Range of Motion Respiratory/Chest: No Respiratory Distress, Lungs Clear, Normal Breath Sounds, No Accessory Muscle Use, Other (left pectoral musculature tenderness to palpation) Cardiovascular: Normal Peripheral Pulses, Regular Rate, Rhythm, No Edema, No Gallop, No JVD, No Murmur, No Rub GI/Abdominal: Normal Bowel Sounds, Soft, Non-Tender, No Organomegaly, No Distention, No Abnormal Bruit, No Mass (Female) Exam: Deferred Rectal (Female) Exam: Deferred Back Exam: Normal Inspection, Full Range of Motion, NT Extremities: Normal Inspection, Normal Capillary Refill, Arm Pain (left chest wall tendernss with increased pain with movement.) Neurological: Alert, Oriented, CN II-XII Intact, Normal Cognition, Normal Gait, Normal Reflexes, No Motor/Sensory Deficits Psychiatric: Normal Affect, Normal Mood Skin Exam: Warm, Dry, Intact, Normal Color, No Rash Lymphatic: No Adenopathy Course - Vital Signs Last Recorded V/S: Last Vital Signs Temp 36.2 C 04/09/20 11:56 Pulse 71 04/09/20 11:56 Resp 16 04/09/20 11:56 BP 122/79 04/09/20 11:56 Pulse Ox 100 04/09/20 11:56 - Orders/Labs/Meds Orders: Active Orders 24 hr Category Date Time Status EKG Documentation Completion [RC] STAT Care 04/09/20 11:49 Active Labs: Laboratory Tests 04/09/20 04/09/20 04/09/20 Range/Units 12:03 12:03 12:03 WBC 6.8 (5.0-10.0) 10^3/uL RBC 5.26 (4.2-5.4) 10^6/uL Hgb 12.9 (12.0-16.0) g/dL Hct 40.0 (37.0-47.0) % MCV 76.0 L D (80-100) fL MCH 24.5 L (27.0-34.0) pg MCHC 32.3 L (33.0-35.0) g/dL Plt Count 311 (150-450) 10^3/uL Neut % (Auto) 52.9 (42.2-75.2) % Lymph % (Auto) 36.9 (20.5-50.1) % [place] % (Auto) 7.3 (2-8) % Eos % (Auto) 2.5 (1.0-3.0) % Baso % (Auto) 0.4 (0.0-1.0) % PT 10.0 (9.0-12.0) SEC INR 1.1 (0.9-1.2) D-Dimer, Quantitative 195 (0-400) ng/mL Sodium 143 (136-145) mmol/L Potassium 4.4 (3.5-5.1) mmol/L Chloride 105 (98-107) mmol/L Carbon Dioxide 33 H (21-32) mmol/L Anion Gap 9.4 (7-13) mEq/L BUN 8 (7-18) mg/dL Creatinine 0.81 (0.55-1.02) mg/dL Est Cr Clr Drug Dosing 63.53 mL/min Estimated GFR (MDRD) > 60 BUN/Creatinine Ratio 9.9 (No establ ref range) Glucose 91 (74-99) mg/dL Calcium 8.7 (8.5-10.1) mg/dL Total Bilirubin 0.5 (0.2-1.0) mg/dL AST 16 (15-37) U/L ALT 17 (14-59) U/L Alkaline Phosphatase 101 (46-116) U/L Troponin I < 0.017 (0.000-0.056) ng/mL Total Protein 6.7 (6.4-8.2) g/dL Albumin 3.0 L (3.4-5.0) g/dL Globulin 3.7 Albumin/Globulin Ratio 0.81 Departure - Departure Time of Disposition: 12:44 Disposition: Home, Self-Care 01 Condition: Fair Clinical Impression: Left-sided chest wall pain Instructions: Chest Wall Pain, [id number] Forms: ED Department Discharge Care Plan Goals: The patient was advised of the examination, lab, EKG and chest x-ray results during the visit. The patient was encouraged to take her pain medication and muscle relaxer (prescribed for her back pain). The patient was encouraged to do some slow stretches for her chest wall musculature. If the patient has any additional symptoms or concerns, the patient should either return to the emergency department or visit her primary care facility. Sepsis Event Note (ED) - Focused Exam Vital Signs: Vital Signs Temp Pulse Resp BP Pulse Ox 04/09/20 11:56 36.2 C 71 16 122/79 100 - My Orders Last 24 Hours: My Active Orders 04/09/20 11:49 EKG Documentation Completion [RC] STAT - Assessment/Plan Last 24 Hours: My Active Orders 04/09/20 11:49 EKG Documentation Completion [RC] STAT
[2020-04-09 11:57] VITALS: BP 122/79; PULSE 71
[2020-04-09 12:30] LABS: ANION GAP 9.4 mEq/L (7-13); CHLORIDE,CL 105 mmol/L (98-107); SODIUM,NA 143 mmol/L (136-145)
== END 2020-04-09 12:58 | disposition home or self-care (01) ==
LOC: DL.ED 11:27
DX: R07.89 Other chest pain (principal); J45.909 Unspecified asthma, uncomplicated; M19.90 Unspecified osteoarthritis, unspecified site; Z88.0 Allergy status to penicillin; Z79.899 Other long term (current) drug therapy
CPT/HCPCS: 36415; 80053; 84484; 85025; 85379; 85610; 93005; 99285-25

== ENCOUNTER 2020-11-08 20:48 | Emergency (ER) | payer MEDICAID ==
[2020-11-08 20:53] VITALS: BP 116/51; PULSE 80
[2020-11-08] MEDS ORDERED: Sodium Chloride 0.9% 1,000 ML IV ONE (20:55)
--- NOTE | 2020-11-08 21:44 | EDM.PDOC ---
ED HPI GENERAL MEDICAL PROBLEM - General Chief Complaint: Syncope Stated Complaint: SPLK Time Seen by Provider: 11/08/20 20:48 Source of Information: Reports: Patient, RN, RN Notes Reviewed History Limitations: Reports: No Limitations - History of Present Illness INITIAL COMMENTS - FREE TEXT/NARRATIVE: 55-year-old female who presents to the ER after a syncopal episode about 20 m inutes ago. Patient reports she was making supper for her 5 grandkids at home and felt dizzy while standing at the kitchen counter. She states she walked towards the couch and gently laid on the couch. She states she was dizzy as she was lying down on the couch. She denies any nausea or vomiting. She reports a lot of stress with dealing with her [id number] about a month ago. She states she is worried that how her son is not able to handle the of his as he told her to take care of his kids if something happens to him. Patient reports little sleep since the of her [id number] about a month ago. She reports sleeping averagely 4 hours a night. She states she has been taking care of her grandkids which has been hard on her. She reports she has not eaten all day today nor drink water. She is tearful at this time. She denies any shortness of breath, fevers, chills, chest pain, palpitations, abdominal problems, urinary problems, or trauma. She denies hitting her head or losing consciousness. Back Pain Score (Numeric/FACES): 5 - Related Data Allergies Allergy/AdvReac Type Severity Reaction Status Date / Time Penicillins Allergy Hives Verified 04/09/20 12:06 Home Meds: Home Meds Albuterol Sulfate [Proair Hfa] 2 puff INH Q6H PRN 05/06/17 [History] Gabapentin [Neurontin] 600 mg PO TID 11/10/18 [History] Meloxicam 15 mg PO DAILY 12/08/18 [History] Alendronate Sodium 70 mg PO .WEEKLY 04/09/20 [History] Montelukast [Singulair] 10 mg PO DAILY 04/09/20 [History] oxyCODONE HCl/Acetaminophen [Endocet 10-325 mg Tablet] 1 each PO Q8H PRN 04/09/20 [History] Past Medical History - Past Health History Medical/Surgical History: Denies Medical/Surgical History HEENT History: Reports: Impaired Vision Other HEENT History: wears glasses Cardiovascular History: Reports: Heart Murmur Respiratory History: Reports: Asthma Gastrointestinal History: Reports: None Genitourinary History: Reports: Pyelonephritis, Renal Calculus Other Genitourinary History: 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 infections 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: Musculoskeletal History: Reports: Arthritis, Back Pain, Chronic, Fracture, Other (See Below) Other Musculoskeletal History: FX L ANKLE, back surgery 2020 Neurological History: Reports: None Psychiatric History: Reports: Anxiety, Depression Endocrine/Metabolic History: Reports: None, Other (See Below) Other Endocrine/Metabolic History: LIVER BIOPSY Hematologic History: Reports: Anemia Immunologic History: Reports: None Oncologic (Cancer) History: Reports: None Dermatologic History: Reports: None - Infectious Disease History Infectious Disease History: Reports: None, Hepatitis non A,B,C - Past Surgical History Head Surgeries/Procedures: Reports: None HEENT Surgical History: Reports: None Cardiovascular Surgical History: Reports: None Respiratory Surgical History: Reports: None GI Surgical History: Reports: Appendectomy, Cholecystectomy Female Surgical History: Reports: Tubal Ligation Endocrine Surgical History: Reports: None Other Neurological Surgeries/Procedures: PATIENT HAS RECEIVED EPIDURAL INJECTIONS FOR BACK PAIN Musculoskeletal Surgical History: Reports: None Oncologic Surgical History: Reports: None Dermatological Surgical History: Reports: None Social & Family History - Family History Family Medical History: No Pertinent Family History HEENT: Reports: None Other Cardiac Family History: unknown heart problems Respiratory: Reports: Asthma GI: Reports: None : Reports: None OBGYN: Reports: None Musculoskeletal: Reports: Arthritis Neurological: Reports: None Psychiatric: Reports: None Endocrine/Metabolic: Reports: Diabetes, type II Hematologic: Reports: None Dermatologic: Reports: None Oncologic: Reports: Other (See Below) Other Oncologic Family History: unknown kind on grandma thinks it was stomach cancer - Tobacco Use Tobacco Use Status *Q: Never Tobacco User Second Hand Smoke Exposure: No - Caffeine Use Caffeine Use: Reports: None - Recreational Drug Use Recreational Drug Use: No - Living Situation & Occupation Living situation: Reports: with Significant Other Occupation: Employed ED ROS GENERAL - Review of Systems Review Of Systems: Comprehensive ROS is negative, except as noted in HPI. - Physical Exam Exam: See Below Exam Limited By: No Limitations General Appearance: Alert, No Apparent Distress Eye Exam: Bilateral Eye: EOMI, Normal Inspection, PERRL Ears: Normal External Exam, Normal Canal, Hearing Grossly Normal, Normal TMs Nose: Normal Inspection, Normal Mucosa, No Blood Throat/Mouth: Normal Inspection, Normal Gums, Normal Oropharynx, Normal Voice, No Airway Compromise Head Exam: Atraumatic, Normocephalic Neck: Normal Inspection, Supple, Non-Tender, Full Range of Motion Respiratory/Chest: No Respiratory Distress, Lungs Clear, Normal Breath Sounds Cardiovascular: Normal Peripheral Pulses, Regular Rate, Rhythm, No Edema, No Murmur GI/Abdominal: Normal Bowel Sounds, Soft, Non-Tender (Female) Exam: Deferred Rectal (Female) Exam: Deferred Neuro Exam (Abbreviated): Alert, Oriented, CN II-XII Intact Extremities: Normal Inspection, No Pedal Edema Psychiatric: Depressed Mood, Tearful Skin Exam: Warm, Normal Color Course - Vital Signs Last Recorded V/S: Last Vital Signs Temp 97 F 11/08/20 20:47 Pulse 80 11/08/20 20:47 Resp 18 11/08/20 20:47 BP 116/51 L 11/08/20 20:47 Pulse Ox 100 11/08/20 20:47 - Orders/Labs/Meds Orders: Active Orders 24 hr Category Date Time Status EKG 12 Lead [EKG Documentation Completion] [RC] URGENT Care 11/08/20 21:33 Ordered CBC WITH AUTO DIFF [HEME] Stat Lab 11/08/20 21:33 Ordered CMP [COMPREHENSIVE METABOLIC PN,CMP] [CHEM] Stat Lab 11/08/20 21:33 Ordered DRUG SCREEN URINE BIORAD [URCHEM] Stat Lab 11/08/20 21:33 Ordered URINALYSIS W/MICROSCOPIC [UA W/MICROSCOPIC] [URIN] Stat Lab 11/08/20 21:33 Ordered Sodium Chloride 0.9% [Normal Saline] 1,000 ml Med 11/08/20 20:55 Active IV .BOLUS Medication Orders Sodium Chloride (Normal Saline) 1,000 mls @ 1,000 mls/hr IV .BOLUS ONE Stop: 11/08/20 21:54 Last Admin: 11/08/20 21:19 Dose: 1,000 mls/hr Documented by: CARIN Labs: Laboratory Tests 11/08/20 Range/Units 20:41 POC Glucose 110 H (70-105) mg/dl Meds: Medications Generic Name Dose Route Start Last Admin Trade Name Vita PRN Reason Stop Dose Admin Sodium Chloride 1,000 mls @ 1,000 mls/hr 11/08/20 20:55 11/08/20 21:19 Normal Saline IV 11/08/20 21:54 1,000 mls/hr .BOLUS ONE Administration - Re-Assessments/Exams Free Text/Narrative Re-Assessment/Exam: Exam findings, EKG and lab results were reviewed with patient. IV fluids administered and patient rested for a while. Vitals stable at this time. Patient is due for follow-up with PCP tomorrow and was encouraged to follow-up as scheduled. Departure - Departure Time of Disposition: 22:15 Disposition: Home, Self-Care 01 Condition: Good Clinical Impression: Syncope Qualifiers: Syncope type: unspecified Qualified Code(s): R55 - Syncope and collapse - Discharge Information Instructions: Syncope, [id number] Additional Instructions: Encourage patient to push fluids, adequate nutrition and rest. Encouraged her to follow-up with PCP as scheduled tomorrow or return to the ER if symptoms worsen. Patient verbalized understanding of this time. Sepsis Event Note (ED) - Evaluation Sepsis Screening Result: No Definite Risk - Focused Exam Vital Signs: Vital Signs Temp Pulse Resp BP Pulse Ox 11/08/20 20:47 97 F 80 18 116/51 L 100 - My Orders Last 24 Hours: My Active Orders 11/08/20 20:55 Sodium Chloride 0.9% [Normal Saline] 1,000 ml IV .BOLUS 11/08/20 21:33 EKG 12 Lead [EKG Documentation Completion] [RC] URGENT CBC WITH AUTO DIFF [HEME] Stat CMP [COMPREHENSIVE METABOLIC PN,CMP] [CHEM] Stat DRUG SCREEN URINE BIORAD [URCHEM] Stat URINALYSIS W/MICROSCOPIC [UA W/MICROSCOPIC] [URIN] Stat - Assessment/Plan Last 24 Hours: My Active Orders 11/08/20 20:55 Sodium Chloride 0.9% [Normal Saline] 1,000 ml IV .BOLUS 11/08/20 21:33 EKG 12 Lead [EKG Documentation Completion] [RC] URGENT CBC WITH AUTO DIFF [HEME] Stat CMP [COMPREHENSIVE METABOLIC PN,CMP] [CHEM] Stat DRUG SCREEN URINE BIORAD [URCHEM] Stat URINALYSIS W/MICROSCOPIC [UA W/MICROSCOPIC] [URIN] Stat
[2020-11-08 21:49] LABS: ANION GAP 11.7 mEq/L (7-13); CHLORIDE,CL 104 mmol/L (98-107); SODIUM,NA 140 mmol/L (136-145)
== END 2020-11-08 22:37 | disposition home or self-care (01) ==
LOC: DL.ED 20:48
DX: R55 Syncope and collapse (principal); J45.909 Unspecified asthma, uncomplicated; Z88.0 Allergy status to penicillin; Z79.899 Other long term (current) drug therapy
CPT/HCPCS: 36415; 80053; 80305; 81001; 82962; 85025; 93005; 99283; 99284; J7030

== ENCOUNTER 2021-07-27 16:58 | Emergency (ER) | payer MEDICAID ==
[2021-07-27] MEDS ORDERED: Ondansetron 4 MG Tab.DIS PO ONE (16:59)
[2021-07-27] MEDS ORDERED: Ketorolac 30 MG/ML SDV IVPUSH ONE (18:06)
[2021-07-27] MEDS ORDERED: Sodium Chloride 0.9% 1,000 ML IV ONE (18:06)
--- NOTE | 2021-07-27 18:19 | EDM.PDOC ---
<Tyler Menchaca M - Last Filed: 07/27/21 18:50> ED HPI GENERAL MEDICAL PROBLEM - General Chief Complaint: General Stated Complaint: BACK, LEG,HEAD PAIN, COVID EXPOSURE Time Seen by Provider: 07/27/21 17:55 Source of Information: Reports: Patient History Limitations: Reports: No Limitations - History of Present Illness INITIAL COMMENTS - FREE TEXT/NARRATIVE: This 56 yo female patient reports to the ED with a headache and back ache. The patient reports she started to have pains this morning, but slept most of the day. The patient reports she took a Percocet this morning, but took 3 Tylenol (500 mg) with no symptom relief. The patient reports she has had similar back pain previously, but this episode seems to be worse. The patient also reports exposure to a COVID + patient over the past couple of weeks. Onset: Today Duration: Hour(s):, Constant, Getting Worse Location: Reports: Head, Back Quality: Reports: Ache, Sharp, Stabbing Severity: Moderate Improves with: Reports: None Worsens with: Reports: None Context: Reports: Other Associated Symptoms: Reports: No Other Symptoms Treatments SOLUTION LEAD: Reports: Acetaminophen Lower Leg Pain Score (Numeric/FACES): 9 - Related Data Allergies Allergy/AdvReac Type Severity Reaction Status Date / Time Penicillins Allergy Hives Verified 07/27/21 17:29 Home Meds: Home Meds Albuterol Sulfate [Proair Hfa] 2 puff INH Q6H PRN 05/06/17 [History] Gabapentin [Neurontin] 600 mg PO TID 11/10/18 [History] Meloxicam 15 mg PO DAILY 12/08/18 [History] Alendronate Sodium 70 mg PO .WEEKLY 04/09/20 [History] Montelukast [Singulair] 10 mg PO DAILY 04/09/20 [History] oxyCODONE HCl/Acetaminophen [Endocet 10-325 mg Tablet] 1 each PO Q8H PRN 04/09/20 [History] Past Medical History - Past Health History Medical/Surgical History: Denies Medical/Surgical History HEENT History: Reports: Impaired Vision Other HEENT History: wears glasses Cardiovascular History: Reports: Heart Murmur Respiratory History: Reports: Asthma Gastrointestinal History: Reports: None Genitourinary History: Reports: Pyelonephritis, Renal Calculus Other Genitourinary History: 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 infections 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: Musculoskeletal History: Reports: Arthritis, Back Pain, Chronic, Fracture, Other (See Below) Other Musculoskeletal History: FX L ANKLE, back surgery 2020 x2 Neurological History: Reports: None Psychiatric History: Reports: Anxiety, Depression Endocrine/Metabolic History: Reports: None, Other (See Below) Other Endocrine/Metabolic History: LIVER BIOPSY Hematologic History: Reports: Anemia Immunologic History: Reports: None Oncologic (Cancer) History: Reports: None Dermatologic History: Reports: None - Infectious Disease History Infectious Disease History: Reports: None, Hepatitis non A,B,C - Past Surgical History Head Surgeries/Procedures: Reports: None HEENT Surgical History: Reports: None Cardiovascular Surgical History: Reports: None Respiratory Surgical History: Reports: None GI Surgical History: Reports: Appendectomy, Cholecystectomy Female Surgical History: Reports: Tubal Ligation Endocrine Surgical History: Reports: None Other Neurological Surgeries/Procedures: PATIENT HAS RECEIVED EPIDURAL INJECTIONS FOR BACK PAIN Musculoskeletal Surgical History: Reports: None Oncologic Surgical History: Reports: None Dermatological Surgical History: Reports: None Social & Family History - Family History Family Medical History: No Pertinent Family History HEENT: Reports: None Other Cardiac Family History: unknown heart problems Respiratory: Reports: Asthma GI: Reports: None : Reports: None OBGYN: Reports: None Musculoskeletal: Reports: Arthritis Neurological: Reports: None Psychiatric: Reports: None Endocrine/Metabolic: Reports: Diabetes, type II Hematologic: Reports: None Dermatologic: Reports: None Oncologic: Reports: Other (See Below) Other Oncologic Family History: unknown kind on grandma thinks it was stomach cancer - Tobacco Use Tobacco Use Status *Q: Never Tobacco User Second Hand Smoke Exposure: No - Caffeine Use Caffeine Use: Reports: None - Recreational Drug Use Recreational Drug Use: No - Living Situation & Occupation Living situation: Reports: with Significant Other Occupation: Employed ED ROS GENERAL - Review of Systems Review Of Systems: Comprehensive ROS is negative, except as noted in HPI. ED EXAM, GENERAL - Physical Exam Exam: See Below Exam Limited By: No Limitations General Appearance: Alert, WD/WN, Moderate Distress Eye Exam: Bilateral Eye: EOMI, Normal Inspection, PERRL Ears: Normal External Exam, Normal Canal, Hearing Grossly Normal, Normal TMs Nose: Normal Inspection, Normal Mucosa, No Blood Throat/Mouth: Normal Inspection, Normal Lips, Normal Teeth, Normal Gums, Normal Oropharynx, Normal Voice, No Airway Compromise Head: Atraumatic, Normocephalic Neck: Normal Inspection, Supple, Non-Tender, Full Range of Motion Respiratory/Chest: No Respiratory Distress, Lungs Clear, Normal Breath Sounds, No Accessory Muscle Use, Chest Non-Tender Cardiovascular: Normal Peripheral Pulses, Regular Rate, Rhythm, No Edema, No Gallop, No JVD, No Murmur, No Rub GI/Abdominal: Normal Bowel Sounds, Soft, Non-Tender, No Organomegaly, No Distention, No Abnormal Bruit, No Mass (Female) Exam: Deferred Rectal (Female) Exam: Deferred Back Exam: Decreased Range of Motion, Muscle Spasm, Paraspinal Tenderness, Vertebral Tenderness Extremities: Normal Inspection, Normal Range of Motion, Non-Tender, Normal Capillary Refill, No Pedal Edema Neurological: Alert, Oriented, CN II-XII Intact, Normal Cognition, Normal Gait, Normal Reflexes, No Motor/Sensory Deficits Psychiatric: Normal Affect, Normal Mood Skin Exam: Warm, Dry, Intact, Normal Color, No Rash Lymphatic: No Adenopathy Departure - Departure Disposition: Home, Self-Care 01 Clinical Impression: Renal colic, Renal calculi - Discharge Information Instructions: Kidney Stones, [id number], Dietary Guidelines to Help Prevent Kidney Stones Referrals: Danelle Farris FARM [employer]OR CONTRACTOR [Primary Care Provider] - Forms: ED Department Discharge Additional Instructions: increase fluids continue home medications ibuprofen 600mg every 8 hours as needed for pain take with food flomax 0.4mg one daily clinic follow up next week urgent follow up severe pain, vomiting, febrile Sepsis Event Note (ED) - Evaluation Sepsis Screening Result: No Definite Risk <Nay Faye - Last Filed: 07/29/21 00:16> Course - Vital Signs Last Recorded V/S: Last Vital Signs Temp 97.5 F 07/27/21 18:58 Pulse 72 07/27/21 18:58 Resp 18 07/27/21 18:58 BP 132/75 07/27/21 18:58 Pulse Ox 96 07/27/21 18:58 - Orders/Labs/Meds Labs: Laboratory Tests 07/27/21 07/27/21 07/27/21 Range/Units 17:05 17:40 18:15 WBC 4.4 L (5.0-10.0) 10^3/uL RBC 4.79 (4.2-5.4) 10^6/uL Hgb 13.7 D (12.0-16.0) g/dL Hct 40.7 (37.0-47.0) % MCV 85.0 (80-100) fL MCH 28.6 (27.0-34.0) pg MCHC 33.7 (33.0-35.0) g/dL Plt Count 297 (150-450) 10^3/uL Neut % (Auto) 63.4 (42.2-75.2) % Lymph % (Auto) 28.1 (20.5-50.1) % [place] % (Auto) 6.4 (2-8) % Eos % (Auto) 0.7 L (1.0-3.0) % Baso % (Auto) 1.4 H (0.0-1.0) % Sodium (136-145) mmol/L Potassium (3.5-5.1) mmol/L Chloride (98-107) mmol/L Carbon Dioxide (21-32) mmol/L Anion Gap (7-13) mEq/L BUN (7-18) mg/dL Creatinine (0.55-1.02) mg/dL Est Cr Clr Drug Dosing mL/min Estimated GFR (MDRD) BUN/Creatinine Ratio (No establ ref range) Glucose (70-99) mg/dL Calcium (8.5-10.1) mg/dL Total Bilirubin (0.2-1.0) mg/dL AST (15-37) U/L ALT (14-59) U/L Alkaline Phosphatase (46-116) U/L Total Protein (6.4-8.2) g/dL Albumin (3.4-5.0) g/dL Globulin Albumin/Globulin Ratio Urine Color Yellow (YELLOW) Urine Appearance Clear (CLEAR) Urine pH 7.5 (5.0-9.0) Ur Specific [place] 1.025 (1.005-1.030) Urine Protein Negative (NEGATIVE) Urine Glucose (UA) Negative (NEGATIVE) Urine Ketones 15 H (NEGATIVE) Urine Occult Blood Trace-intact H (NEGATIVE) Urine Nitrite Negative (NEGATIVE) Urine Bilirubin Negative (NEGATIVE) Urine Urobilinogen 0.2 (0.2-1.0) mg/dL Ur Leukocyte Esterase Negative (NEGATIVE) Urine RBC 5-10 H (0-5) /HPF Urine WBC 0-5 (0-5/HPF) /HPF Ur Epithelial Cells Moderate H (NOT SEEN) /HPF Urine Bacteria Many H (0-FEW/HPF) /HPF SARS-CoV-2 RNA (HEIDI) Negative (NEGATIVE) 07/27/21 Range/Units 18:15 WBC (5.0-10.0) 10^3/uL RBC (4.2-5.4) 10^6/uL Hgb (12.0-16.0) g/dL Hct (37.0-47.0) % MCV (80-100) fL MCH (27.0-34.0) pg MCHC (33.0-35.0) g/dL Plt Count (150-450) 10^3/uL Neut % (Auto) (42.2-75.2) % Lymph % (Auto) (20.5-50.1) % [place] % (Auto) (2-8) % Eos % (Auto) (1.0-3.0) % Baso % (Auto) (0.0-1.0) % Sodium 143 (136-145) mmol/L Potassium 3.8 (3.5-5.1) mmol/L Chloride 105 (98-107) mmol/L Carbon Dioxide 25 (21-32) mmol/L Anion Gap 16.8 H (7-13) mEq/L BUN 8 (7-18) mg/dL Creatinine 0.64 (0.55-1.02) mg/dL Est Cr Clr Drug Dosing 79.48 mL/min Estimated GFR (MDRD) > 60 BUN/Creatinine Ratio 12.5 (No establ ref range) Glucose 96 (70-99) mg/dL Calcium 9.0 (8.5-10.1) mg/dL Total Bilirubin 1.2 H (0.2-1.0) mg/dL AST 20 (15-37) U/L ALT 15 (14-59) U/L Alkaline Phosphatase 97 (46-116) U/L Total Protein 6.8 (6.4-8.2) g/dL Albumin 3.5 (3.4-5.0) g/dL Globulin 3.3 Albumin/Globulin Ratio 1.1 Urine Color (YELLOW) Urine Appearance (CLEAR) Urine pH (5.0-9.0) Ur Specific [place] (1.005-1.030) Urine Protein (NEGATIVE) Urine Glucose (UA) (NEGATIVE) Urine Ketones (NEGATIVE) Urine Occult Blood (NEGATIVE) Urine Nitrite (NEGATIVE) Urine Bilirubin (NEGATIVE) Urine Urobilinogen (0.2-1.0) mg/dL Ur Leukocyte Esterase (NEGATIVE) Urine RBC (0-5) /HPF Urine WBC (0-5/HPF) /HPF Ur Epithelial Cells (NOT SEEN) /HPF Urine Bacteria (0-FEW/HPF) /HPF SARS-CoV-2 RNA (HEIDI) (NEGATIVE) Meds: Medications Discontinued Medications Generic Name Dose Route Start Last Admin Trade Name Freq PRN Reason Stop Dose Admin Sodium Chloride 1,000 mls @ 999 mls/hr 07/27/21 18:06 07/27/21 18:11 Normal Saline IV 07/27/21 19:06 999 mls/hr .BOLUS ONE Administration Ketorolac Tromethamine 30 mg 07/27/21 18:06 07/27/21 18:11 Ketorolac 30 Mg/Ml Sdv IVPUSH 07/27/21 18:07 30 mg ONETIME ONE Administration Ondansetron HCl Confirm 07/27/21 20:11 Ondansetron 4 Mg Tab.Dis Administered 07/27/21 20:12 Dose 12 mg .ROUTE .STK-MED ONE Tamsulosin HCl 0.4 mg 07/27/21 20:03 07/27/21 20:15 Tamsulosin 0.4 Mg Cap.Er PO 07/27/21 20:04 0.4 mg ONETIME ONE Administration Departure - Departure Time of Disposition: 20:04 Condition: Good - Discharge Information *PRESCRIPTION DRUG MONITORING PROGRAM REVIEWED*: No *COPY OF PRESCRIPTION DRUG MONITORING REPORT IN PATIENT ERICKSON: No
[2021-07-27 18:45] LABS: ANION GAP 16.8 mEq/L (7-13); CHLORIDE,CL 105 mmol/L (98-107); SODIUM,NA 143 mmol/L (136-145)
[2021-07-27 18:59] VITALS: PULSE 72
[2021-07-27 19:04] VITALS: BP 130/72
--- NOTE | 2021-07-27 19:47 | CT ---
PROCEDURE INFORMATION: Exam: CT Abdomen And Pelvis Without Contrast Exam date and time: 07/27/2021 6:44 PM Age: 56 years old Clinical indication: Other: Back pain with hematuria TECHNIQUE: Imaging protocol: Computed tomography of the abdomen and pelvis without contrast. Radiation optimization: All CT scans at this facility use at least one of these dose optimization techniques: automated exposure control; mA and/or kV adjustment per patient size (includes targeted exams where dose is matched to clinical indication); or iterative reconstruction. COMPARISON: No relevant prior studies available. FINDINGS: Lungs: The visualized lung bases are clear. Liver: Mild generalized hepatic steatosis. Gallbladder and bile ducts: Cholecystectomy clips. Pancreas: Normal. No ductal dilation. Spleen: Normal. No splenomegaly. Adrenal glands: Normal. No mass. Kidneys and ureters: Nonobstructing left interpolar 3 mm renal pyramidal calculus calculus. Mildly prominent bilateral extrarenal pelves. Focal scarring in the lateral upper and interpolar right kidney. No hydronephrosis or hydroureter. No ureteral calculus. Stomach and bowel: Unremarkable. No obstruction. No mucosal thickening. Appendix: No evidence of appendicitis. Intraperitoneal space: Unremarkable. No free air. No significant fluid collection. Vasculature: Unremarkable. No abdominal aortic aneurysm. Lymph nodes: Unremarkable. No enlarged lymph nodes. Urinary bladder: No layering urinary bladder calculus. Mild urinary bladder wall thickening. Correlate with urinalysis. Reproductive: Unremarkable as visualized. Bones/joints: Postoperative changes of L5-S1 spinal fixation with interbody spacer. Soft tissues: Unremarkable. IMPRESSION: 1. Mild urinary bladder wall thickening. Correlate with urinalysis. 2. Nonobstructing left interpolar 3 mm renal pyramidal calculus. No hydronephrosis.
[2021-07-27] MEDS ORDERED: Tamsulosin 0.4 MG Cap.ER PO ONE (20:03)
[2021-07-27] MEDS ORDERED: Ondansetron 4 MG Tab.DIS ONE (20:11)
== END 2021-07-27 20:25 | disposition home or self-care (01) ==
LOC: DL.ED 16:58
DX: N20.0 Calculus of kidney (principal); Z88.0 Allergy status to penicillin; Z20.822 Contact with and (suspected) exposure to COVID-19
CPT/HCPCS: 36415; 74176; 80053; 81001; 85025; 96374; 99284-25; A9270-GY; J1885; J7030; U0002

== ENCOUNTER 2021-11-15 21:33 | Emergency (ER) | payer MEDICAID ==
[2021-11-15 21:49] LABS: AMPHETAMINES,URINE NEGATIVE (NEGATIVE); BARBITURATES,URINE NEGATIVE (NEGATIVE); BENZODIAZEPINE,URINE NEGATIVE (NEGATIVE); MDMA (ECSTASY), URINE NEGATIVE (NEGATIVE); METHADONE,URINE NEGATIVE (NEGATIVE); METHAMPHETAMINES,URINE NEGATIVE (NEGATIVE); OPIATES,URINE NEGATIVE (NEGATIVE); OXYCODONE,URINE POSITIVE (NEGATIVE); PHENCYCLIDINE,URINE NEGATIVE (NEGATIVE); TCA,URINE NEGATIVE (NEGATIVE)
[2021-11-15] MEDS ORDERED: Sodium Chloride 0.9% 1,000 ML IV ONE (22:04)
[2021-11-15 22:06] LABS: ACETAMINOPHEN 1 ug/mL (10-30 (Therapeutic)); ANION GAP 15.4 mEq/L (7-13); CHLORIDE,CL 105 mmol/L (98-107); SODIUM,NA 144 mmol/L (136-145)
[2021-11-15] MEDS ORDERED: Iopamidol 612 MG/ML 100 ML Bottle IVPUSH ONE (22:17)
[2021-11-15 22:58] VITALS: BP 138/73; PULSE 69
[2021-11-15] MEDS ORDERED: Doxycycline Monohydrate 100 MG Cap PO ONE (23:23)
== END 2021-11-15 23:55 | disposition home or self-care (01) ==
LOC: DL.ED 21:33
DX: L08.9 Local infection of the skin and subcutaneous tissue, unspecified (principal); Z88.0 Allergy status to penicillin
CPT/HCPCS: 36415; 70491; 80053; 80143; 80179; 80305-QW; 80307; 81001; 85025; 93005; 93010; 99284; 99285-25; A9270-GY; J7030; Q9967

== ENCOUNTER 2022-12-01 10:17 | Emergency (ER) | payer MEDICAID ==
[2022-12-01] MEDS: Ketorolac 30 MG/ML SDV IM ONE (10:52)
[2022-12-01] MEDS: Ondansetron 4 MG/2 ML SDV IVPUSH ONE (12:14)
[2022-12-01] MEDS: HYDROmorphone 1 MG/ML Syringe IVPUSH ONE ×4 (12:14→23:50)
[2022-12-01] MEDS: Acetaminophen/oxyCODONE 325-5 MG Tab PO PRN (16:41)
[2022-12-01 23:52] VITALS: PULSE 64
[2022-12-02 03:32] VITALS: BP 116/64
[2022-12-02] MEDS: HYDROmorphone 1 MG/ML Syringe IVPUSH ONE (05:32)
== END 2022-12-02 06:00 | disposition home or self-care (01) ==
LOC: DL.ED 10:17
DX: S82.142A Displaced bicondylar fracture of left tibia, initial encounter for closed fracture (principal); S83.92XA Sprain of unspecified site of left knee, initial encounter; Z88.0 Allergy status to penicillin; W01.0XXA Fall on same level from slipping, tripping and stumbling without subsequent striking against object, initial encounter; Y92.002 Bathroom of unspecified non-institutional (private) residence as the place of occurrence of the external cause
CPT/HCPCS: 29505; 73700; 96372; 96374; 96375; 96376; 99283; 99283-25; A9270-GY; J1170; J1885; J2405